=== PATIENT | male | born 1970 | race Caucasian/White ===

== ENCOUNTER 2019-12-16 15:12 | Emergency (ER) | payer MEDICARE, SELFPAY ==
[2019-12-16 15:47] VITALS: BP 117/77; PULSE 68; RESP 16; TEMP 36.6; O2SAT 97; BMI 33.2
--- NOTE | 2019-12-16 15:52 | XR_ITS ---
WS: [id number] Right leg including the tibia and fibula, 12/16/2019 Clinical Data: injury Comparison: None. Findings: No fractures or dislocations are seen. The tibia and fibula are intact. The soft tissues are normal. There is an unfused tibial tubercle which is a normal variation. XR/XR tibia fibula RT 2V 25370 Impression: Negative for fracture.
--- NOTE | 2019-12-16 16:48 | ED_ITS ---
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 MD Complaint: extremity pain Onset (ago): hour(s) Pain Consistency: constant Location: right Severity scale (1-10): 3 Quality: aching Radiation: none Exacerbating factors: nothing Associated symptoms: Deny chest pain, fever(s) or rash Review of Systems Const: Denies: fever, chills or body aches Eyes: Denies: change in vision or blurry vision ENMT: Denies: throat pain or nasal congestion Card: Denies: chest pain or shortness of breath on exertion Resp: Denies: shortness of breath, productive cough or non-productive cough GI: Denies: abdominal pain, nausea or vomiting : Denies: difficulty urinating Musc: Reports: extremity pain (See HPI) Skin/Breast: Denies: rash Neuro: Denies: headache Psych: Denies: anxiety or depression Butch/Lymph: Denies: easy bruising PFSH ED PFSH: Statuses (acute, chronic, etc) shown below reflect problem list status as previously entered and may not be historically accurate Social History Smoking and tobacco status: current every day smoker Physical Exam Const: COMMON NORMALS: no apparent distress, average body habitus and oriented x3 HENMT: COMMON NORMALS: normocephalic HEAD & SCALP: normal to inspection and normocephalic FACE & SINUS: normal facial exam Eye: COMMON NORMALS: conjunctivae normal GENERAL EYE: normal appearance of both eyes CONJUNCTIVA: Yes conjunctivae normal Neck/C-Spine: COMMON NORMALS: no JVD Chest: COMMONS NORMALS: inspection of chest normal Resp: COMMON NORMALS: normal respiratory effort and clear to auscultation bilaterally AUSCULTATION: clear to auscultation bilaterally Cardio: COMMON NORMALS: no JVD, regular rate and regular rhythm RATE: regular rate RHYTHM: regular rhythm GI: COMMON NORMALS: normal to inspection, nondistended, normoactive bowel sounds Extremity: COMMON NORMALS: normal to inspection and full ROM NARRATIVE EXTREMITY EXAM: Patient has 2 areas abrasion to his right lower extremity 1 to the tibial area about 6 inch above the ankle and 1 to the medial aspect of the right ankle. Does have some swelling in the skin. Is tender to the touch x-ray was negative does have full range of motion. Neuro: COMMON NORMALS: oriented x3 Course Vital Signs: Vital signs: Vital Signs Temperature 97.9 F 12/16/19 15:47 Pulse Rate 68 12/16/19 15:47 Respiratory Rate 16 12/16/19 15:47 Blood Pressure 117/77 12/16/19 15:47 Pulse Oximetry 97 12/16/19 15:47 MDM - Extremity (Nontraumatic) MDM Narrative: Medical decision making narrative: Patient declined tetanus immunization. Discharge Plan Discharge Patient Disposition: Home, Self-Care Clinical Impression: Contusion of leg, right Qualifiers: Encounter type: initial encounter Qualified Code(s): S80.11XA - Contusion of right lower leg, initial encounter Condition: Stable Discharge Orders: Discharge Order (Routine); Ordered 12/16/19 Ordered By: Alexandru Frances Referrals: ERNESTINA BRADLEY, [employer] OPERATOR [Primary Care Provider] - Discharge Diet: Usual diet Discharge Activity: Increase activity as tolerated Patient Instructions: Contusion in Adults (ED) Activity Restrictions/Additional Instructions: If worsening of symptoms follow-up with family provider. Ice to the area. Observe for signs of infection. 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 Coding Level of Care Code ED Broom Stitcher for Sylvia Enriquez
--- NOTE | 2019-12-16 16:50 | PC.NURSE ---
Patient states he went to kick [employer] 4 [employer] and hit the metal peg bar. Has 2 abrasions on lower left extremity, along with swelling and tenderness.
[2019-12-16 16:59] VITALS: BP 113/72; PULSE 64; RESP 18; O2SAT 97
== END 2019-12-16 17:00 | disposition home or self-care (01) ==
PROVIDERS: Emergency Provider Nurse Practitioner Family; Family Provider Nurse Practitioner Family; PCP Nurse Practitioner Family
DX: S80.11XA Contusion of right lower leg, initial encounter (principal); W22.8XXA Striking against or struck by other objects, initial encounter; F17.210 Nicotine dependence, cigarettes, uncomplicated
CPT/HCPCS: 73590; 99281; 99282

== ENCOUNTER → 2019-12-19 09:29 | Outpatient (BNVA) | payer MEDICARE, SELFPAY | PROVIDERS: Family Provider Nurse Practitioner Family; PCP Nurse Practitioner Family; Referring Provider Nurse Practitioner Family; Visit Provider Podiatrist Foot & Ankle Surgery | DX: S80.11XA Contusion of right lower leg, initial encounter (principal); W22.8XXA Striking against or struck by other objects, initial encounter; M25.571 Pain in right ankle and joints of right foot; M25.471 Effusion, right ankle | CPT/HCPCS: 73610 ==

== ENCOUNTER 2019-12-19 11:18 | Outpatient (CLI) | payer MEDICARE, SELFPAY | END 2019-12-19 11:19 | disposition home or self-care (01) | LOC: SPT 11:19 | PROVIDERS: Family Provider Nurse Practitioner Family; PCP Nurse Practitioner Family; Visit Provider Podiatrist Foot & Ankle Surgery | DX: M66.371 Spontaneous rupture of flexor tendons, right ankle and foot (principal) | CPT/HCPCS: L4361 ==

== ENCOUNTER → 2020-07-22 16:38 | Outpatient (BNVA) | payer OTHER, SELFPAY | PROVIDERS: Family Provider Nurse Practitioner Family; Visit Provider Nurse Practitioner Family | DX: M25.561 Pain in right knee (principal); M25.511 Pain in right shoulder; I10 Essential (primary) hypertension; R73.9 Hyperglycemia, unspecified; M19.011 Primary osteoarthritis, right shoulder | CPT/HCPCS: 73030; 73562; 80053; 80061; 83036; 84450; 85025; 87070; 87075; 87205 ==